=== PATIENT | male | born 1995 | race Caucasian/White ===

== ENCOUNTER 2016-09-22 19:36 | Emergency (ER) | payer SELFPAY ==
[~2016-09-22] VITALS: Ht 180.3 cm; Wt 76.0 kg
[2016-09-22 19:37] VITALS: BP 130/74; PULSE 98; RESP 15; TEMP 98.5; O2SAT 97
== END 2016-09-23 01:11 | disposition left against medical advice (07) ==
LOC: NED 19:36
DX: S09.90XA Unspecified injury of head, initial encounter (principal); X58.XXXA Exposure to other specified factors, initial encounter
CPT/HCPCS: 99281